=== PATIENT | female | born 1980 | race Caucasian/White ===

== ENCOUNTER 2016-07-04 12:26 | Emergency (ER) | payer OTHER ==
[~2016-07-04] VITALS: Ht 170.2 cm; Wt 81.8 kg
[~2016-07-04 12:26] MED LIST: AMOX875T PO; CIPR0.3S RIGHT EAR; IBUP800T23 PO
[2016-07-04 12:27] VITALS: BP 132/80; PULSE 81; RESP 14; TEMP 98.7; O2SAT 98
[2016-07-04] MEDS ORDERED: CIPR0.3S RIGHT EAR (12:56)
[2016-07-04] MEDS ORDERED: AUGM875T PO (12:56)
--- NOTE | 2016-07-04 12:59 | PD ---
HPI . Right ear infection for over one year, now worse Chief Complaint: ENT Complaint Time Seen by Provider: 12:51 Travel History International Travel<30 days: No Contact w/Intl Traveler<30days: No Traveled to known affect area: No History of Present Illness HPI 35-year-old male with no past medical history here with complaints of recurrent right ear infection for over one year. Patient states she has been repeatedly treated by her primary care physician who refuses to issue her a referral to ear nose and throat. Patient says over the past few days her right ear pain has significantly worsened. She says now is difficult for her to chew or swallow because of the pain radiating from her ear to her jaw. Denies any fever or chills. Denies any recent cold symptoms. She denies any swimming or use of Q-tips. She does admit to keeping cotton balls in her ears after taking a shower. PFSH Past Medical History Diminished Hearing: Yes Migraines: Yes ?: Not LMP: 07/03/2016 : 4 Para: 3 Miscarriage: 1 : 0 Social History Alcohol Use: No Tobacco Use: No Substance Use: No Allergies-Medications (Allergen,Severity, Reaction): Coded Allergies: No Known Allergies (Unverified , 07/04/16) Reported Meds & Prescriptions Reported Meds & Active Scripts Active Ciprodex Otic Drops (Ciprofloxacin-Dexamethasone Otic Drops) 0.3-0.1% Susp 4 Drop RIGHT EAR BID Augmentin (Amoxicillin-Clavulanate) 875-125 mg Tab 875 Mg PO BID not for use in CrCl <30 ml/min. Ciprodex Otic Susp (Ciprofloxacin/Dexamethasone) 7.5 Ml Susp 5 Drop RIGHT EAR Q12 7 Days Ibuprofen 800 Mg Tab 800 Mg PO Q8HR 10 Days Amoxil (Amoxicillin) 875 Mg Tab 875 Mg PO BID 10 Days Review of Systems General / Constitutional: No: Fever Eyes: No: Visual changes HENT: Positive: Headaches, Earache Cardiovascular: No: Chest Pain or Discomfort Respiratory: No: Shortness of Breath Gastrointestinal: No: Abdominal Pain Genitourinary: No: Dysuria Musculoskeletal: No: Pain Skin: No Rash Neurologic: No: Weakness Psychiatric: No: Depression Endocrine: No: Polydipsia Hematologic/Lymphatic: No: Easy Bruising Physical Exam Narrative GENERAL: AAO x 3, no acute distress, Well-nourished, well-developed patient. SKIN: Warm and dry. No visible rashes or bruising. HEAD: Normocephalic and atraumatic. EYES: No scleral icterus. No injection or drainage. EOM intact, PERRLA ENT: No nasal drainage noted. Mucous membranes pink. Airway patent Left TM normal. Right TM, + bulging. Right ear canal + erythema and some mild edema. NECK: Supple, trachea midline. No JVD. CARDIOVASCULAR: Regular rate and rhythm without murmurs, gallops, or rubs. RESPIRATORY: Breath sounds equal bilaterally. No accessory muscle use. No rhonchi or rales. GASTROINTESTINAL: Abdomen soft, non-tender, nondistended. EXTREMITIES: No cyanosis or edema. BACK: Nontender without obvious deformity. No CVA tenderness. PSYCH: AAO x 3, normal affect. Data Data Last Documented VS Vital Signs Date Time Temp Pulse Resp B/P Pulse Ox O2 Delivery O2 Flow Rate FiO2 07/04/16 12:27 98.7 81 14 132/80 98 Room Air MDM Medical Decision Making Medical Screen Exam Complete: Yes Emergency Medical Condition: Yes Medical Record Reviewed: Yes Differential Diagnosis OM, OE, mastoiditis Narrative Course 35-year-old male with no past medical history here with complaints of recurrent right ear infection for over one year. Patient states she has been repeatedly treated by her primary care physician who refuses to issue her a referral to ear nose and throat. Patient says over the past few days her right ear pain has significantly worsened. She says now is difficult for her to chew or swallow because of the pain radiating from her ear to her jaw. Denies any fever or chills. Denies any recent cold symptoms. She denies any swimming or use of Q-tips. She does admit to keeping cotton balls in her ears after taking a shower. I advised patient that I will prescribe her some Augmentin and Ciprodex. Advised follow-up with primary care provider for referral to ear nose and throat Patient verbalized understanding of instructions, questions were answered, and thanked me for their care. I advised them if their condition worsens, please return to the nearest emergency room for further care. Patient Instructions: General Instructions, Otitis Externa (ED), Otitis Media ( ED) Additional Instructions: Please follow-up with your primary care provider for referral to ear nose and throat. Take all medications as prescribed. Do not use Q-tips or stick any objects into your ear. Med/Other Pt SpecificInfo: Prescription(s) given Scripts Ciprofloxacin-Dexamethasone Otic Drops (Ciprodex Otic Drops)0.3-0.1% Susp4 Drop RIGHT EAR BID #1 BOTTLE Ref 0 Prov:Mary Callahan 07/04/16 Amoxicillin-Clavulanate (Augmentin)875-125 mg Cpr251 Mg PO BID #20 TAB Ref 0 not for use in CrCl <30 ml/min. Prov:Mary Callahan 07/04/16 Disposition: 01 DISCHARGE HOME Condition: Stable Mary Callahan Jul 04, 2016 12:59
--- NOTE | 2016-07-19 12:10 | PD ---
HPI . right ear infection for over one year, now worse Chief Complaint: ENT Complaint Time Seen by Provider: 12:51 Travel History International Travel<30 days: No Contact w/Intl Traveler<30days: No Traveled to known affect area: No History of Present Illness HPI 35-year-old female with no past medical history here with complaints of recurrent right ear infection for over one year. Patient states she's been repeatedly treated by her primary care physician who refuses to issue her a referral to ear nose and throat. Patient says over the past few days her right ear pain has significantly worsened. She says now it is difficult for her to chew or swallow. Pain is radiating from her ear to her jaw. She denies any fever or chills. She denies any recent cold symptoms. She denies any swimming or use of Q-tips. She does admit to keeping cotton balls in her ears after taking shower. PFSH Past Medical History Diminished Hearing: Yes Migraines: Yes ?: Not LMP: 07/03/2016 : 4 Para: 3 Miscarriage: 1 : 0 Social History Alcohol Use: No Tobacco Use: No Substance Use: No Allergies-Medications (Allergen,Severity, Reaction): Coded Allergies: No Known Allergies (Unverified , 07/04/16) Reported Meds & Prescriptions Reported Meds & Active Scripts Active Ciprodex Otic Drops (Ciprofloxacin-Dexamethasone Otic Drops) 0.3-0.1% Susp 4 Drop RIGHT EAR BID Augmentin (Amoxicillin-Clavulanate) 875-125 mg Tab 875 Mg PO BID not for use in CrCl <30 ml/min. Ciprodex Otic Susp (Ciprofloxacin/Dexamethasone) 7.5 Ml Susp 5 Drop RIGHT EAR Q12 7 Days Ibuprofen 800 Mg Tab 800 Mg PO Q8HR 10 Days Amoxil (Amoxicillin) 875 Mg Tab 875 Mg PO BID 10 Days Review of Systems General / Constitutional: No: Fever Eyes: No: Visual changes HENT: Positive: Headaches, Earache, No: Ear Discharge Cardiovascular: No: Chest Pain or Discomfort Respiratory: No: Shortness of Breath Gastrointestinal: No: Abdominal Pain Genitourinary: No: Dysuria Musculoskeletal: No: Pain Skin: No Rash Neurologic: No: Weakness Psychiatric: No: Depression Endocrine: No: Polydipsia Hematologic/Lymphatic: No: Easy Bruising Physical Exam Narrative GENERAL: AAO x 3, no acute distress, Well-nourished, well-developed patient. SKIN: Warm and dry. No visible rashes or bruising. HEAD: Normocephalic and atraumatic. EYES: No scleral icterus. No injection or drainage. EOM intact, PERRLA ENT: No nasal drainage noted. Mucous membranes pink. Airway patent. Left TM normal. Right TM with bulging, right ear canal positive erythema and some mild edema. NECK: Supple, trachea midline. No JVD. CARDIOVASCULAR: Regular rate and rhythm without murmurs, gallops, or rubs. RESPIRATORY: Breath sounds equal bilaterally. No accessory muscle use. No rhonchi or rales. GASTROINTESTINAL: Abdomen soft, non-tender, nondistended. EXTREMITIES: No cyanosis or edema. BACK: Nontender without obvious deformity. No CVA tenderness. PSYCH: AAO x 3, normal affect. Data Data Last Documented VS 07/04/16 Temperature 98.7 Pulse 81 Resp: 14 BP 132/80 O2 98% (room air) MDM Medical Decision Making Medical Screen Exam Complete: Yes Emergency Medical Condition: Yes Medical Record Reviewed: Yes Differential Diagnosis OM, OE, mastoiditis Narrative Course 35-year-old female with no past medical history here with complaints of recurrent right ear infection for over one year. Patient states she's been repeatedly treated by her primary care physician who refuses to issue her a referral to ear nose and throat. Patient says over the past few days her right ear pain has significantly worsened. She says now it is difficult for her to chew or swallow.Pain is radiating from her ear to her jaw. She denies any fever or chills. She denies any recent cold symptoms. She denies any swimming or use of Q-tips. She does admit to keeping cotton balls in her ears after taking shower. Advised patient that I will prescribe her some Augmentin and Ciprodex. Advised to follow with primary care provider for referral to ear nose and throat. Patient verbalized understanding of instructions, questions were answered and she thanked me for her care. I advised her if her conditions worsen to return to the nearest emergency room for further care. Diagnosis Primary Impression: Otitis externa Qualified Code: H60.501 - Acute otitis externa of right ear, unspecified type Additional Impression: Otitis media Qualified Code: H65.21 - Right chronic serous otitis media Patient Instructions: General Instructions, Otitis Externa (ED), Otitis Media ( ED) Departure Forms: Tests/Procedures Additional Instructions: Please follow-up with your primary care provider for referral to ear nose and throat. Take all medications as prescribed. Do not use Q-tips or stick any objects into your ear. Scripts Ciprofloxacin-Dexamethasone Otic Drops (Ciprodex Otic Drops)0.3-0.1% Susp4 Drop RIGHT EAR BID #1 BOTTLE Ref 0 Prov:Mary Callahan 07/04/16 Amoxicillin-Clavulanate (Augmentin)875-125 mg [id number] Mg PO BID #20 TAB Ref 0 not for use in CrCl <30 ml/min. Prov:Mary Callahan 07/04/16 Disposition: 01 DISCHARGE HOME Condition: Stable Mary Callahan Jul 19, 2016 12:10
== END 2016-07-04 13:17 | disposition home or self-care (01) ==
LOC: NEPB 12:26
DX: H60.91 Unspecified otitis externa, right ear (principal); H66.91 Otitis media, unspecified, right ear
CPT/HCPCS: 99283

== ENCOUNTER 2017-02-15 19:06 | Emergency (ER) | payer OTHER ==
[~2017-02-15 19:06] MED LIST changes: +AUGM875T PO
[2017-02-15 19:09] VITALS: BP 144/90; PULSE 106; RESP 18; TEMP 99.3; O2SAT 98
== END 2017-02-15 21:26 | disposition left against medical advice (07) ==
LOC: NED 19:06
DX: Z53.21 Procedure and treatment not carried out due to patient leaving prior to being seen by health care provider (principal)
CPT/HCPCS: 99281